=== PATIENT | female | born 1985 ===

== ENCOUNTER → 2021-04-03 | Outpatient (CLI) | payer OTHER ==
--- NOTE | 2021-04-03 16:39 | RAD ---
EXAM: Pelvic sonogram. HISTORY: Left adnexal pain. Irregular cycles. TECHNIQUE: Sonographic imaging of the pelvis was performed. COMPARISON: None. FINDINGS: The uterus measures 8.5 x 5.6 x 3.4 cm. The endometrial stripe measures 4 mm in thickness. The ovaries are normal in size and demonstrate normal blood flow. There is a 1.2 cm physiologic domin ant left ovarian follicle. There is no pelvic free fluid. IMPRESSION: 1. 1.2 cm physiologic dominant left ovarian follicle. 2. No suspicious sonographic finding. Electronically signed by: Peggy Cardenas MD (04/03/2021 4:37 PM) [id number]
== END ==
LOC: EDBD 15:59 → US 15:59
PROVIDERS: ATTEND Physician Assistant
DX: N94.89 Other specified conditions associated with female genital organs and menstrual cycle (principal)
CPT/HCPCS: 76856